=== PATIENT | male | born 1960 | race Hispanic/Latino ===

== ENCOUNTER → 2017-10-23 | Outpatient (CLI) | payer OTHER ==
[~2017-10-23] MED LIST: AMLODIPINE BESY10 MG PO; DITROPAN XL5 MG PO; PENICILLIN V P500 MG PO; TYLENOL WITH C1 EACH PO; ULTRAM50 MG PO
--- NOTE | 2017-10-23 08:29 | Diagnostic Imaging Report ---
PROCEDURE:X-RAY ABDOMEN - KUB COMPARISON:Abdomen one view 12/08/2016. INDICATIONS:CACLULUS OF THE KIDNEY FINDINGS: There is a non-obstructed bowel-gas pattern. There are no calcifications projected over the renal shadows, expected course of the ureters or bladder. Phleboliths are present in the pelvis. There are no acute osseous abnormalities. The lung bases are clear. CONCLUSION: No acute radiographic abnormality. Dictated by: Berlin Sotelo M.D. on 10/23/2017 at 8:29 Electronically approved by: Berlin Sotelo M.D. on 10/23/2017 at 8:29
== END ==
LOC: RAD 07:58
PROVIDERS: ATTEND Urology
DX: N20.0 Calculus of kidney (principal)
CPT/HCPCS: 74018

== ENCOUNTER → 2018-05-26 | Outpatient (CLI) | payer OTHER ==
--- NOTE | 2018-05-26 16:35 | Diagnostic Imaging Report ---
RADIOGRAPH(S) OF THE ABDOMEN AND PELVIS, 2 view(s) HISTORY: Calculus of kidney COMPARISON: Images from abdominal and pelvic radiographs October 23, 2017 and December 08, 2016. FINDINGS: No specific evidence of obstruction or ileus. On the view of the upper abdomen, a 5 mm calcific density projects adjacent to the inferior margin of the distal 12th rib. The majority of the right kidney is obscured by stool and bowel gas. The bones are partially obscured by stool and overlying bowel gas. IMPRESSION: 1. Possible 5 mm stone in the region of the inferior pole of the right kidney. 2. Nonobstructive bowel gas pattern. Signed by: Dr. Jaret vAiles D.O., M.M.M. on 05/26/2018 4:31 PM
== END ==
LOC: RAD 15:51
PROVIDERS: ATTEND Urology
DX: N20.0 Calculus of kidney (principal)
CPT/HCPCS: 74018